=== PATIENT | female | born 1995 ===

== ENCOUNTER 2024-01-27 09:41 | Outpatient (AMB) | payer BC, MEDICAID, SELFPAY ==
--- NOTE | 2024-01-27 10:01 | AM.OFFWIN_ITS ---
Intake Vital Signs 01/27/24 10:06 Height 5 ft 6.54 in Weight 160 lb 4 oz BMI 25.4 BP 98/60 Blood Pressure Location Lt brachial Position Sitting Pulse 87 Pulse Source Pulse Oximeter Temp 98.4 F Temp Source Oral Pulse Oximetry (%) 98 Oxygen Delivery Method Room Air Intake Visit Reasons: Possible UTI Intake Note: Slight burning while urinating. Tried taking her friends doxycycline on 01/25/24, but it made her feel suicidle. Patient Tobacco Use Status: Current everyday Tobacco user (vaping) Is last menstrual period known: Yes Last menstrual period: 01/13/24 Allergies sulfamethoxazole [From Bactrim] Allergy (Severe, Verified 01/27/24 10:32) Hives trimethoprim [From Bactrim] Allergy (Severe, Verified 01/27/24 10:32) Hives citalopram [From Celexa] Allergy (Verified 01/27/24 10:32) suicidal fluoxetine [From Prozac] Allergy (Verified 01/27/24 10:32) suicidal Medication List - Last Reconciled 01/27/24 by Korin Villarreal, [facility]- hydroxyzine HCl 50 mg PO BID lamotrigine 150 mg PO DAILY melatonin 5 mg PO BEDTIME Do you need a note to return to daycare/school/sports/work: Yes Return to daycare/school/sports/work/other note: work HPI HPI Comments History of Present Illness Details Here today w/ concern for UTI REports 1 week ago developed dysuria This lasted a few days tried cranberry juice w/o relief then started to take doxycycline from a friend this has helped the urinary sx but feels its effecting her emotionally -- so she stopped Took twice per day x 2.5 days PFS Social History Patient Tobacco Use Status: Current everyday Tobacco user (vaping) Female Reproductive History Menstrual Date of last menstrual period: 01/13/24 Review of Systems Const All systems reviewed & are unremarkable except as noted in HPI and below Physical Exam Vital Signs: Last Vital Signs Temp 98.4 F 01/27/24 10:06 Pulse 87 01/27/24 10:06 BP 98/60 01/27/24 10:06 Pulse Ox 98 01/27/24 10:06 Oxygen Delivery Method Room Air 01/27/24 10:06 BMI result Body Mass Index 25.4 Const Other: Awake alert oriented Mucous membranes moist Regular rate and rhythm No CVAT bilat No suprapubic tenderness Results AMB Urinalysis Dipstick UR Leukocytes Negative Last Edit by Francy Castaneda CMA on 01/27/24 10:20 UR Nitrite Negative Last Edit by Francy Castaneda, PIER MASTER ASSISTANT on 01/27/24 10:20 UR Urobilinogen Normal Last Edit by Francy Castaneda, YAKELIN on 01/27/24 10:20 UR Protein Negative Last Edit by Francy Castaneda, PIER MASTER ASSISTANT on 01/27/24 10:20 UR Ph 6.0 Last Edit by Francy Castaneda, PIER MASTER ASSISTANT on 01/27/24 10:20 UR Blood Negative Last Edit by Francy Castaneda, PIER MASTER ASSISTANT on 01/27/24 10:20 UR Specific [place] 1.030 Last Edit by Francy Castaneda, PIER MASTER ASSISTANT on 01/27/24 10: 20 UR Ketone Negative Last Edit by Francy Castaneda, PIER MASTER ASSISTANT on 01/27/24 10:20 UR Bilirubin Negative Last Edit by Francy Castaneda, YAKELIN on 01/27/24 10:20 UR Glucose Negative Last Edit by Francy Castaneda, YAKELIN on 01/27/24 10:20 Results Reviewed Results Reviewed: Laboratory Last Values Urine pH (Clinic) 6.0 01/27/24 10:11 Specific [place] (Clinic) 1.030 01/27/24 10:11 Ur Protein (Clinic) Negative 01/27/24 10:11 Ur Ketones (Clinic) Negative 01/27/24 10:11 Urine Blood (Clinic) Negative 01/27/24 10:11 Urine Nitrite Negative 01/27/24 10:11 Urine Bilirubin (Clinic) Negative 01/27/24 10:11 Urobilinogen (Clinic) Normal 01/27/24 10:11 Leukocyte Esterase (Clinic) Negative 01/27/24 10:11 Urine Glucose (Clinic) Negative 01/27/24 10:11 Assessment & Plan Assessment & Plan (1) Burning with urination: Code(s): R30.0 - Dysuria Plan: . Plan . Orders: Orders AMB Urinalysis Dipstick Today R30.0 - Dysuria Patient Instructions: Urinalysis negative today after completing a total of 5 doses of doxycycline. She does endorse improvement of symptoms. Advised that there was no need for any antibiotic treatment at this time. Encouraged proper hydration, cranberry juice, lemon with cucumber water to puddler helper in health. If she develops any fever, chills, abdominal pain, return of symptoms advised that she follow up with our office for further evaluation and treatment. Does not currently have a primary care. Encouraged to arrange for primary care visit for ongoing management. Coding Level of Care Code Est Pt Level 3 (53042) Diagnoses Burning with urination R30.0
[2024-01-27 10:06] VITALS: BP 98/60; PULSE 87; TEMP 36.9; O2SAT 98; BMI 25.4
== END 2024-01-27 11:02 | disposition home or self-care (01) ==
PROVIDERS: Visit Provider Nurse Practitioner Family
DX: R30.0 Dysuria (principal)
CPT/HCPCS: 81002; 99213

== ENCOUNTER 2024-03-01 09:30 | Outpatient (RCR) | payer BC, SELFPAY ==
[2024-02-27 11:47] VITALS: BP 104/75; PULSE 81; TEMP 36.6
[2024-02-27 11:53] VITALS: BMI 24.8
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
--- NOTE | 2024-03-01 16:01 | HO.PHP ---
Pt's case has been opened and reviewed in treatment team.
--- NOTE | 2024-03-01 23:17 | HO.PHPPROGNO ---
Subjective Subjective Date of Service: 03/01/24 Reason For Visit: depression,anxiety,PTSD Interim History: Received paperwork from provider, reviewed past medical history w mention of congenital Syphilis, she notes that from what she has learned, in [place], the history as documented by orphanages is often reviewed in a suspcious light, they didn't want healthy kids getting adopted out of the country which lead to healthy kids often getting labeled with unfounded intellectual impairment or medical disabilities. Aspects of her medical history that she deems accurate is lactose intolerance, environmental allergies, and geernally avoids dairy. Also diagnosis of RAD and a lot of traumatic responses . She relays often taking things wrong with her partner, rejection sensitivity and being highly emotional. Tends to take things personally, especially with her partner is also struggling with their own mental health issues. Reports long history of intrusive thoughts and OCD starting back in 7th grade, used to have this major anxiety where people thought I was a boy . She says she no longer struggles with those worries about what other's thinks and says she did not struggle with gender identity issues or gender dysphoria. Those obsession have resolved, but moved onto other fixations (fears about being seen as a delinquant, etc) mostly stem from fear of judgment of others. She also relays concerns around trust issues and shares that she usually struggles with being comfortable with middle age and professional women but spontaneously offers assurance that she is comfortable in this program with staff. She says however she often feels overstimulated and overwhelmed by all the people and emotionally-provocative discussions in groups which triggers a lot of the trauma-induced intrusive thoughts, reactivity and anxiety. I realize I'm not okay and even once the immediate anxiety passes, Im still not okay . She is agreeable to starting on risperidone to target symptoms. Medication Compliance: Yes Side effects from medications: No Attending Groups: Yes Review of Systems Acute medical concerns: No Mental Status Exam Mental Status Exam Narrative: Alert, oriented, in no acute distress. Calm, cooperative, engaged. No psychomotor agitation or neurovegetative retardation. Eye contact maintained. Mood depressed, affect constricted, no irritability or lability noted. Speech normal. Thought process linear, coherent. Thought content related to stressors, transient hopelessness, denies SI or HI. No paranoia or delusional content elicited. No evidence of psychosis. Insight and judgment - fair but adequate Diagnostics Vital Signs (24Hr): BMI result Body Mass Index 24.8 Assessment & Plan Assessment & Plan (1) MDD (major depressive disorder), recurrent episode: Status: Acute Code(s): F33.9 - Major depressive disorder, recurrent, unspecified (2) Other specified episodic mood disorder: Status: Acute Code(s): F39 - Unspecified mood [affective] disorder (3) PTSD (post-traumatic stress disorder): Status: Acute Code(s): F43.10 - Post-traumatic stress disorder, unspecified (4) Post concussive syndrome: Status: Acute Code(s): F07.81 - Postconcussional syndrome (5) Nicotine dependence due to vaping non-tobacco product: Status: Acute Code(s): F17.200 - Nicotine dependence, unspecified, uncomplicated (6) Cannabis use disorder: Status: Acute Code(s): F12.90 - Cannabis use, unspecified, uncomplicated (7) Alcohol use: Status: Acute Code(s): Z78.9 - Other specified health status Assessment and Plan: r/o abuse Plan start risperidone 0.125-0.25 mg up to BID prn as tolerated continue Lamictal 150 mg qd continue clonidine 0.1 mg qd (may consider switching to prazosin) continue hydroxyzine 25-50 mg qhs prn sleep continue melatonin 10 mg qhs prn sleep may consider nootropic agent to help with post-concussive syndrome (Wellbutrin cause irritability, unclear if pt was not on concomitant mood stabilizer at the time) Pending routine lab work and baseline EKG Continue to monitor Certification I certify that partial hospital treatment is medically necessary due to the symptoms and problems resulting from the patient's mental illness and the failure to treat the patient at the partial hospital level of care would likely result in the patient requiring inpatient psychiatric care which could not be prevented at a less intensive level of care. Total time managing care of this patient today ____ minutes. Discharge Plan Discharge Attending provider: Lina Steinberg Medications: New risperidone 0.25 mg tablet 0.25 mg PO BID Qty: 20 0RF acetylcysteine [NAC] 600 mg capsule 600 mg PO DAILY 30 Days Qty: 30 0RF Continued clonidine HCl 0.1 mg Tablet 0.05 mg PO BID PRN (Reason: Anxiety) Rx Instructions: Take 1/2 tab BID prn anxiety. melatonin 10 mg Tablet 10 mg PO BEDTIME PRN (Reason: Insomnia) lamotrigine 150 mg tablet 150 mg PO BEDTIME 14 Days Qty: 14 0RF Changed hydroxyzine HCl 50 mg tablet 25 - 50 mg PO BEDTIME PRN (Reason: sleep) Qty: 14 0RF No Action nicotine 14 mg/24 hr Patch 24 Hour 1 patch TRANSDERMAL DAILY Print Language: Italian
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
--- NOTE | 2024-03-05 15:45 | HO.PHP ---
PHP staff member contacted Mona after 15 minutes from the first outreach attempt. Mona disclosed that she would like to discontinue the program. PHP staff member explored why she would like to discontinue. Mona noted that she does not feel it is a good fit for her at this time. PHP staff member was receptive and collected discharge information. PHP staff member also completed a risk assessment, in which no concerns were presented at discharge. PHP staff member informed Mona if she would like to return to the program, she can contact Katiana for a reassessment. Mona was receptive.
--- NOTE | 2024-03-08 08:55 | PC.NURSE ---
Mona discharged from the program early. Unable to get Mona a PCP as Mona stated she is going to be losing her [employer] Blue shield insurance soon. She [place] have [place] however she has not picked a plan. Mona and I called Financial Assistance at [facility] last week and left a message for them to call us back to make her an appointment to help her with the insurance. I called Mona today and left her a message with the numbers to [facility] Financial Assistance to have her call and make an appointment to f/u with insurance.
--- NOTE | 2024-03-13 13:36 | PC.NURSE ---
Spoke to Mona and gave her the numbers to [facility] Assistance to make an appointment to f/u with insurance plan in order to make an appointment with a new PCP.
== END 2024-03-01 23:59 | disposition left against medical advice (07) ==
LOC: HO.PHPA 09:30
PROVIDERS: Visit Provider Psychiatry & Neurology Psychiatry
DX: F33.9 Major depressive disorder, recurrent, unspecified (principal); F39 Unspecified mood [affective] disorder; F43.10 Post-traumatic stress disorder, unspecified; F07.81 Postconcussional syndrome; F17.200 Nicotine dependence, unspecified, uncomplicated; F12.90 Cannabis use, unspecified, uncomplicated; F10.90 Alcohol use, unspecified, uncomplicated; Z79.899 Other long term (current) drug therapy
CPT/HCPCS: 90791; 90853